=== PATIENT | male | born 1985 | race Two or more races ===

== ENCOUNTER 2017-04-12 20:56 | Emergency (ER) | payer SELFPAY ==
[~2017-04-12] VITALS: Ht 167.6 cm; Wt 63.5 kg
[2017-04-12 21:04] VITALS: BP 122/72
[2017-04-12] MEDS ORDERED: FAMOTIDINE 20 MG TABLET. PO ONE (21:30)
[2017-04-12] MEDS ORDERED: DEXAMETHASONE SOD PHOS 20 MG/5 ML VIAL. IM ONE (21:30)
[2017-04-12] MEDS ORDERED: diphenhydrAMINE HCL 25 MG CAPSULE PO ONE (21:30)
[2017-04-12] MEDS ORDERED: FAMO-63 PO (21:43)
[2017-04-12] MEDS ORDERED: METH4TAB2 PO (21:43)
--- NOTE | 2017-04-12 21:44 | PHYS DOC ---
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 Patient states that his rash started yesterday. Patient states that it has diffusely spread from his arms across his body to his neck, chest, and face. Patient denies any shortness breath associated with his symptoms. The patient is unable to identify any potential exposures that could have caused his symptoms. Benadryl yesterday which offered to remove symptoms. Patient states upon awakening this morning the symptoms worsen. Patient denies any pain, recent fever, cough, or recent travel. He hasn't started any new medications within the last week. Review of Systems Review of Systems Constitutional: Denies fever or chills [] Eyes: Denies change in visual acuity, redness, or eye pain [] HENT: Denies nasal congestion or sore throat [] Respiratory: Denies cough or shortness of breath [] Cardiovascular: No edema [] GI: Denies abdominal pain, nausea, vomiting, bloody stools or diarrhea [] : Denies dysuria or hematuria [] Musculoskeletal: Denies back pain or joint pain [] Integument: Skin rash [] Neurologic: Denies headache, focal weakness or sensory changes [] Current Medications Current Medications Current Medications Medications (Trade) Dose Ordered Sig/Giorgio Start Time Stop Time Status Last Admin Dose Admin Dexamethasone Sodium Phosphate (Decadron) 12 mg 1X ONCE 04/12/17 21:30 04/12/17 21:31 DC Diphenhydramine HCl (Benadryl) 50 mg 1X ONCE 04/12/17 21:30 04/12/17 21:31 DC Famotidine (Pepcid) 20 mg 1X ONCE 04/12/17 21:30 04/12/17 21:31 DC Allergies Allergies Allergies Coded Allergies Type Severity Reaction Last Updated Verified Penicillins Allergy Intermediate Itching 05/07/15 Yes Physical Exam Physical Exam Constitutional: Well developed, well nourished, no acute distress, non-toxic appearance. [] HENT: Normocephalic, atraumatic, bilateral external ears normal, oropharynx moist, no oral exudates, nose normal. [] Eyes: PERRLA, EOMI, conjunctiva normal, no discharge. [] Neck: Normal range of motion, no tenderness, supple, no stridor. [] Cardiovascular:Heart rate regular rhythm, no murmur [] Lungs & Thorax: Bilateral breath sounds clear to auscultation [] Abdomen: Bowel sounds normal, soft, no tenderness, no masses, no pulsatile masses. [] Skin: Warm, dry, diffuse urticarial lesions present on bilateral upper and lower extremities, trunk, face, neck. [] Back: No tenderness, no CVA tenderness. [] Extremities: No tenderness, no cyanosis, no clubbing, ROM intact, no edema. [] Neurologic: Alert and oriented X 3, normal motor function, normal sensory function, no focal deficits noted. [] Current Patient Data Vital Signs Vital Signs Date Time Temp Pulse Resp B/P (MAP) Pulse Ox O2 Delivery O2 Flow Rate FiO2 04/12/17 21:04 99.3 89 20 99 Room Air 99.3 EKG EKG Rhythm strip interpretation by me: Heart rate 89, sinus rhythm, no ectopy Radiology/Procedures Radiology/Procedures Not performed [] Course & Med Decision Making Course & Med Decision Making Pertinent Labs and Imaging studies reviewed. (See chart for details) Patient has evidence of urticarial rash with no respiratory involvement. Patient 's vital signs are stable. Patient was treated with IM Decadron and oral Benadryl and Pepcid. Patient will continue on outpatient treatment with Medrol Dosepak, Benadryl, and Pepcid. Advised follow-up in 5-7 days of symptoms are not improving and return to the emergency department for any worsening symptoms. Patient voiced understanding and in agreement with treatment plan. Dragon Disclaimer Dragon Disclaimer This electronic medical record was generated, in whole or in part, using a voice recognition dictation system. Departure Departure Impression: Primary Impression: Urticaria Disposition: 01 HOME, SELF-CARE Condition: IMPROVED Referrals: NO PCP (PCP) Patient Instructions: Hives Additional Instructions: Follow-up with your primary doctor in the next 5 days if symptoms do not improve. You may use 1-2 capsules of [id number] Benadryl every 6 hours as needed for itching and rash. Return to the emergency department for any worsening symptoms. ELVIN BROWN MD April 12, 2017 21:44
== END 2017-04-12 22:35 | disposition home or self-care (01) ==
LOC: ER 20:56
DX: L50.9 Urticaria, unspecified (principal); Z88.0 Allergy status to penicillin
CPT/HCPCS: 96372; 99283; J1100; Q0163